=== PATIENT | male | born 1985 | race Caucasian/White ===

== ENCOUNTER 2025-01-10 09:16 | Emergency (ER) | payer MEDICAID, SELFPAY ==
[2025-01-10 09:21] VITALS: BP 126/79; PULSE 122; RESP 18; TEMP 36.2; O2SAT 100; BMI 20.3
[2025-01-10 10:07] VITALS: BP 150/88; PULSE 115; O2SAT 98
--- NOTE | 2025-01-10 10:13 | W.ED.SEIZURE ---
HPI - Seizure General: Chief Complaint: Seizure Stated Complaint: seizure @ 8 am Time Seen by Provider: 01/10/25 09:49 Source: family Mode of arrival: ambulatory Limitations: no limitations History of Present Illness: HPI Narrative: This patient presents to the emergency department because of seizure. History is provided by his manager utilization management as well as his family. He was in his normal state of health and activity this morning had not eaten breakfast. Taking his usual medication there was a cheerio similar on the floor and he bent down to pick it up and apparently fell forward and then suffered a seizure. The manager utilization management who was standing right next to him states that he did not injure himself hit his head etc. during his fall he essentially was close to the ground and just cut a tumbled forward. She states the seizure was generalized lasted approximately 20 seconds or so. She states he remained awake immediately after the seizure seemed to be uninjured and got up and started moving around but was slower to communicate than usual. He has a history of seizure disorder and apparently has not had a seizure that they know of for many years. His mother is also present and states that he has seizure disorder as a child but has not had any known seizures for some time. He has been faithful to his medications as they are administered by the caretakers at his detention. He has been sleeping normally for him and has not been recently ill. There was no loss of bowel or bladder control during the seizure. Family report that he seems to be acting very normal for him although he is usually very active in terms of being up and about any unusual and that he is lying comfortably in the bed right now. Description of Episode: tonic-clonic movement Witnessed: Yes - by Bystander Trauma: No Seizure History: Yes Place: Home Possible Precipitating Event: none Associated symptoms: Reports no associated symptoms; Deny chills, fever(s) or syncope Treatments prior to arrival: none Related Data Home Medications ?Medication ?Instructions ?Recorded ?Confirmed acetaminophen 325 mg tablet 650 mg PO QID PRN Fever 01/10/25 01/10/25 (Tylenol) benztropine 1 mg tablet 1 mg PO BID 01/10/25 01/10/25 carbamazepine 200 mg tablet 200 mg PO TID 01/10/25 01/10/25 cetirizine 10 mg capsule (Zyrtec) 10 mg PO DAILY PRN allergies 01/10/25 01/10/25 clonidine HCl 0.1 mg tablet 0.1 mg PO QID 01/10/25 01/10/25 dextromethorphan 5 mg-guaifenesin 20 ml PO Q4H PRN Cough 01/10/25 01/10/25 50 mg/5 mL oral liquid (Robafen DM) hydroxyzine pamoate 50 mg capsule 50 mg PO BEDTIME 01/10/25 01/10/25 ibuprofen 200 mg tablet (Advil) 400 mg PO Q6H PRN Fever Or Pain 01/10/25 01/10/25 lamotrigine 100 mg tablet 100 mg PO BID 01/10/25 01/10/25 loperamide 2 mg capsule 2 mg PO QID PRN loose stools 01/10/25 01/10/25 magnesium hydroxide 400 mg/5 mL 800 mg PO DAILY PRN Constipation 01/10/25 01/10/25 oral suspension (Milk of Magnesia) melatonin 5 mg tablet 10 mg PO BEDTIME 01/10/25 01/10/25 polyethylene glycol 3350 17 17 g PO DAILY 01/10/25 01/10/25 gram/dose oral powder (Miralax) quetiapine 200 mg tablet,extended 200 mg PO BEDTIME 01/10/25 01/10/25 release 24 hr quetiapine 50 mg tablet 50 mg PO DAILY agitation and sleep 01/10/25 01/10/25 risperidone 2 mg tablet 2 mg PO QID 01/10/25 01/10/25 topiramate 100 mg tablet 100 mg PO TID 01/10/25 01/10/25 trazodone 300 mg tablet 300 mg PO BEDTIME 01/10/25 01/10/25 vitamin E 268 mg (400 unit) capsule 268 mg PO DAILY 01/10/25 01/10/25 Allergies Allergy/AdvReac Type Severity Reaction Status Date / Time Sulfa (Sulfonamide Allergy ALGY-Hives Verified 01/10/25 09:37 Antibiotics) Review of Systems Const: Denies: fever(s) or chills Eyes: Denies: change in vision ENMT: Denies: throat pain, odynophagia, nasal discharge or nasal congestion Card: Denies: syncope or pre-syncope Resp: Denies: dyspnea, productive cough, non-productive cough or wheezing GI: Denies: nausea or diarrhea Musc: Denies: back pain, extremity pain or extremity swelling Skin/Breast: Denies: rash Neuro: Denies: headache(s) Don/Lymph: Denies: easy bruising or easy bleeding Physical Exam Narrative: EXAM NARRATIVE: He is alert active and interactive with family and seemingly in no acute distress. He has a protective helmet on. Const: COMMON NORMALS: no acute distress, average body habitus and alert GENERAL APPEARANCE: cooperative, comfortable and well kempt ORIENTATION/CONSCIOUSNESS: Yes oriented to person HENMT: COMMON NORMALS: normocephalic, atraumatic, Normal nasal mucous membranes and turbinates present, moist oral mucous membranes and oropharynx normal (No evidence of intraoral or dental or tongue injury) HEAD & SCALP: normocephalic and atraumatic FACE & SINUS: normal facial exam and face symmetric NOSE: Normal nasal mucous membranes and turbinates present Eye: COMMON NORMALS: Equal, round and reactive pupils present, EOMs intact bilaterally and conjunctivae normal CONJUNCTIVA: Yes conjunctivae normal PUPIL: Yes Equal, round and reactive pupils present Neck/C-Spine: CERVICAL SPINE: Yes cervical ROM normal, No Cervical spine tenderness, No step off deformity and No Paracervical muscle tenderness Chest: COMMONS NORMALS: normal inspection of the chest and normal palpation of entire chest wall Resp: COMMON NORMALS: normal respiratory effort, No retractions and clear to auscultation bilaterally AUSCULTATION: clear to auscultation bilaterally Cardio: COMMON NORMALS: regular rate, regular rhythm, No murmurs present (Cardio) and Peripheral pulses 2+ throughout RATE: regular rate RHYTHM: regular rhythm PERIPHERAL PULSES: Peripheral pulses 2+ throughout GI: COMMON NORMALS: Normal to inspection, nondistended, normoactive bowel sounds present, Soft to palpation and non-tender PALPATION: Yes Soft to palpation : COMMON NORMALS: Yes no CVA tenderness BLADDER/KIDNEY EXAM: Yes no CVA tenderness Back/Pelvis: COMMON NORMALS: no CVA tenderness, thoracic and lumbar spine normal to inspection, no thoracic nor lumbar tenderness and thoraco-lumbar ROM normal Extremity: COMMON NORMALS: normal to inspection, full ROM, capillary refill normal, no calf tenderness and no pedal edema Neuro: COMMON NORMALS: moves all extremities and no focal motor deficits SENSORIUM/ORIENTATION: Yes alert and Yes oriented to person Psych: APPEARANCE: Yes well kempt Skin: COMMON NORMALS: no rashes or lesions noted, no wounds and turgor normal GENERAL SKIN EXAM: no rashes or lesions noted and turgor normal Course Reevaluation(s): Reevaluation #1: Patient's drank and states he is hungry. He is at his baseline per family. At this time there is no evidence of any injury. There is no clear etiology to his breakthrough seizure. I have explained to mother and the remainder of the family that his laboratories are normal here as we would anticipate and that his drug levels will take 48 to 72 hours or more to return. We also reviewed lack of indication for imaging at this time given a single breakthrough seizure no temperature elevation, no predisposing trauma etc. We also reviewed the fact that if he continues to have breakthrough seizures or other changes he will need to be reevaluated and imaging performed at that time. Mother voiced understanding the plan of care and was appreciative of care. Stable for discharge. Time: 11:48 Vital Signs: Vital signs: Vital Signs Temperature 97.1 F L 01/10/25 09:21 Pulse Rate 107 H 01/10/25 11:07 Respiratory Rate 18 01/10/25 09:21 Blood Pressure 131/92 01/10/25 11:07 Pulse Oximetry 97 01/10/25 11:07 Oxygen Delivery Me thod Room Air 01/10/25 09:21 MDM - Seizure MDM Narrative Medical decision making narrative: This patient presented as noted in HPI. Has a longstanding history of seizure disorder although has been seizure-free for many years. There is no evidence of predisposing trauma, fever, sleep deprivation or other changes in medication body weight etc. that might have predisposed him to a seizure. He did not suffer any injury during his episode today. He is back at his baseline and his basic laboratory evaluation here is unremarkable. Given the seizure history, lack of any trauma or injury today or any predisposing injury no imaging was obtained today but we did review the fact that if he continues to have seizures then a sedated MRI would be indicated. Family voiced understanding. No evidence at this time to suggest infectious etiology etc. He is being discharged to outpatient follow-up. Lab Data Attestation: I reviewed the patient's lab results. 01/10/25 10:33 01/10/25 10:33 Labs: Laboratory Results WBC 8.77 10^3/uL (3.29-11.43) 01/10/25 10:33 RBC 4.76 10^6/uL (3.85-5.65) 01/10/25 10:33 Hgb 14.70 g/dL (11.27-16.99) 01/10/25 10:33 Hct 45.0 % (37-53) 01/10/25 10:33 MCV 94.5 fl (82-101) 01/10/25 10:33 MCH 30.9 pg (27-33) 01/10/25 10:33 MCHC 32.7 g/dL (30-55) 01/10/25 10:33 RDW 12.5 % (12.1-15.1) 01/10/25 10:33 Plt Count 194 10^3/cmm (157-399) 01/10/25 10:33 MPV 9.9 fL (7.4-10.4) 01/10/25 10:33 Neut % (Auto) 91.7 % 01/10/25 10:33 Lymph % (Auto) 2.9 % 01/10/25 10:33 [place] % (Auto) 4.8 % 01/10/25 10:33 Eos % (Auto) 0.3 % 01/10/25 10:33 Baso % (Auto) 0.1 % 01/10/25 10:33 Neut # (Auto) 8.04 10^3/uL (1.8-7.7) H 01/10/25 10:33 Lymph # (Auto) 0.3 10^3/uL (0.8-4.8) L 01/10/25 10:33 [place] # (Auto) 0.4 10^3/uL (0.2-0.9) 01/10/25 10:33 Eos # (Auto) 0.0 10^3/uL (0.0-0.8) 01/10/25 10:33 Baso # (Auto) 0.0 10^3/uL (0.0-0.1) 01/10/25 10:33 Nucleated RBC % (auto) 0 % 01/10/25 10:33 Nucleated RBCs # 0.0 /100WBC 01/10/25 10:33 Sodium 138 mmol/L (136-145) 01/10/25 10:33 Potassium 3.7 mmol/L (3.5-5.1) 01/10/25 10:33 Chloride 109 mmol/L (98-107) H 01/10/25 10:33 Carbon Dioxide 21 mmol/L (22-29) L 01/10/25 10:33 Anion Gap 11.7 (5-19) 01/10/25 10:33 BUN 21 mg/dL (6-20) H 01/10/25 10:33 Creatinine 0.9 mg/dL (0.7-1.2) 01/10/25 10:33 GFR Calculation 95.0 mL/min (90-130) 01/10/25 10:33 Glucose 137 mg/dL (65-115) H 01/10/25 10:33 Calculated Osmolality 291 mOsm/kg (285-295) 01/10/25 10:33 Calcium 8.3 mg/dL (8.5-10.5) L 01/10/25 10:33 Total Bilirubin 0.2 mg/dL (0.15-1.2) 01/10/25 10:33 AST 20 U/L (0-40) 01/10/25 10:33 ALT 16 U/L (0-41) 01/10/25 10:33 Alkaline Phosphatase 96 U/L (40-130) 01/10/25 10:33 Total Protein 7.0 g/dL (6.6-8.7) 01/10/25 10:33 Albumin 4.1 g/dL (3.5-5.2) 01/10/25 10:33 Globulin 2.9 g/dL (1.3-4.6) 01/10/25 10:33 No radiology studies performed this visit Discharge Plan Discharge Patient Disposition: Home Clinical Impression: Generalized seizure Condition: Stable Prescriptions: No Action acetaminophen [Tylenol] 325 mg Tablet 650 mg PO QID PRN (Reason: Fever) clonidine HCl 0.1 mg Tablet 0.1 mg PO QID carbamazepine 200 mg Tablet 200 mg PO TID benztropine 1 mg Tablet 1 mg PO BID Zyrtec 10 mg Capsule 10 mg PO DAILY PRN (Reason: allergies) hydroxyzine pamoate 50 mg Capsule 50 mg PO BEDTIME loperamide 2 mg Capsule 2 mg PO QID PRN (Reason: loose stools) risperidone 2 mg Tablet 2 mg PO QID magnesium hydroxide [Milk of Magnesia] 400 mg/5 mL Suspension 800 mg PO DAILY PRN (Reason: Constipation) ibuprofen [Advil] 200 mg Tablet 400 mg PO Q6H PRN (Reason: Fever Or Pain) trazodone 300 mg Tablet 300 mg PO BEDTIME polyethylene glycol 3350 [Miralax] 17 gram/dose Powder 17 g PO DAILY topiramate 100 mg Tablet 100 mg PO TID lamotrigine 100 mg Tablet 100 mg PO BID vitamin E 268 mg (400 unit) Capsule 268 mg PO DAILY quetiapine 50 mg Tablet 50 mg PO DAILY quetiapine 200 mg Tablet Extended Release 24 Hr 200 mg PO BEDTIME melatonin 5 mg Tablet 10 mg PO BEDTIME Robafen DM 5-50 mg/5 mL Liquid 20 ml PO Q4H PRN (Reason: Cough) Discharge Orders: Discharge ED (Routine); Ordered 01/10/25 Ordered By: Maxim Kaur Discharge Diet: Usual diet Discharge Activity: Resume usual activity Patient Instructions: Opioid Safety, Pain Management Activity Restrictions/Additional Instructions: As we discussed while in the emergency department Ramon had a breakthrough seizure today with out any prodrome and suffered no untoward consequences of that single seizure. We have obtained blood levels of his antiseizure medications and those results will be known in the next several days. I have placed a consultation to case management who should provide follow-up for those drug levels. If you are concerned about recurrent seizures or other concerns at any time return to this emergency department for reevaluation. We will make no changes in his usual medications at this time. Print Language: Cuban Coding Level of Care Code ED Tuber Machine Operator for Cecile Rapp
[2025-01-10 10:44] LABS: Basophils % 0.1 %; Eosinophils % 0.3 %; Lymphocytes # 0.3 10^3/uL (0.8-4.8); Lymphocytes % 2.9 %; Mean Corpuscular HGB Conc 32.7 g/dL (30-55); Mean Corpuscular Hemoglobin 30.9 pg (27-33); Mean Corpuscular Volume 94.5 fl (82-101); Mean Platelet Volume 9.9 fL (7.4-10.4); Monocytes # 0.4 10^3/uL (0.2-0.9); Monocytes % 4.8 %; Neutrophils # 8.04 10^3/uL (1.8-7.7); Neutrophils % 91.7 %; Nucleated Red Blood Cells % 0 %; Platelet Count 194 10^3/cmm (157-399); Red Blood Count 4.76 10^6/uL (3.85-5.65); Red Cell Distribution Width 12.5 % (12.1-15.1); White Blood Count 8.77 10^3/uL (3.29-11.43)
[2025-01-10 10:59] LABS: Alanine Aminotransferase 16 U/L (0-41); Albumin Level 4.1 g/dL (3.5-5.2); Alkaline Phosphatase 96 U/L (40-130); Anion Gap 11.7 (5-19); Aspartate Amino Transferase 20 U/L (0-40); Blood Urea Nitrogen 21 mg/dL (6-20); Calcium 8.3 mg/dL (8.5-10.5); Carbon Dioxide 21 mmol/L (22-29); Chloride 109 mmol/L (98-107); Creatinine Clr Calc Pharmacy 117.2668; Globulin 2.9 g/dL (1.3-4.6); Glucose 137 mg/dL (65-115); Osmolality Calculated 291 mOsm/kg (285-295); Potassium 3.7 mmol/L (3.5-5.1); Sodium 138 mmol/L (136-145); Total Bilirubin 0.2 mg/dL (0.15-1.2)
[2025-01-10 11:07] VITALS: BP 131/92; PULSE 107; O2SAT 97
== END 2025-01-10 12:17 | disposition home or self-care (01) ==
PROVIDERS: Emergency Provider Emergency Medicine
DX: G40.89 Other seizures (principal)
CPT/HCPCS: 80053; 80175; 80201; 85025; 99283